=== PATIENT | female | born 1965 | race Caucasian/White ===

== ENCOUNTER 2021-11-08 07:52 | Outpatient (CLI) | payer OTHER, SELFPAY | END 2021-11-08 07:53 | disposition home or self-care (01) | DX: R42 Dizziness and giddiness (principal) | CPT/HCPCS: 99199 ==

== ENCOUNTER 2022-01-31 08:00 | Outpatient (CLI) | payer OTHER, SELFPAY | END 2022-01-31 08:01 | disposition home or self-care (01) | LOC: ANHAUDIO 08:01 | DX: R42 Dizziness and giddiness (principal); R55 Syncope and collapse | CPT/HCPCS: 92537; 92540; 92546; 92567 ==